=== PATIENT | female | born 1965 | race Caucasian/White ===

== ENCOUNTER 2018-03-23 17:52 | Inpatient (IN) | payer OTHER ==
[~2018-03-23] VITALS: Ht 157.5 cm; Wt 75.8 kg
--- NOTE | ~2018-03-23 | EKG ---
[address] [place] [address] ELECTROCARDIOGRAM REPORT Name: DEVMAXAGUSTO Erlinda Room #: 431-P ADM IN M.R.#: [id number] Admission: 03/23/18 Attend Phys: Erlinda Lion Discharge: Date of : 69 Report #: [id number] THIS REPORT FOR: //name// [facility] ED Test Date: 2018-03-23 Test Time: 19:07:50 Pat Name: AGUSTO LEZAMA Department: Room: Gender: F [employer]: CHERELLE : 1965 Requested By: Marifer Madrigal Order Number: [id number] MD: Bennie Rojas Measurements Intervals [place] Rate: 84 P: 33 ID: [id number] QRS: -14 QRSD: 91 T: 237 QT: 407 QTc: 482 Interpretive Statements Sinus rhythm Probable left atrial enlargement Abnormal R-wave progression, early transition Nonspecific T abnormalities, diffuse leads Compared to ECG 11/13/2012 07:50:38 T-wave abnormality now present Electronically Signed On 03-24-2018 8:10:42 CDT by Bennie Rojas [email or web address] <ELECTRONICALLY SIGNED> By: Bennie Rojas MD, FACC 03/24/18 0810 1907 1907 Bennie Rojas MD, [facility] /EPI
--- NOTE | ~2018-03-23 | D ---
[facility] [place] [address] DISCHARGE SUMMARY Name: AGUSTO LEZAMA Room #: 431-P [facility] IN M.R.#: [id number] Admission: 03/23/18 Attend Phys: Erlinda Lion Discharge: 03/24/18 Date of : 69 Report #: [id number] THIS REPORT FOR: //name// CC: Anuj Smith DATE OF SERVICE: 03/24/2018 FINAL DIAGNOSES: 1. Hypokalemia. 2. Hypotension. HOSPITAL COURSE: The patient was admitted with general weakness and a near syncopal episode. She had severe hypokalemia with potassium at 2.2 and mild hypotension with systolic in the 90s-100s. She was treated with IV fluid bolus and potassium supplementation. Her strength and mobility improved and blood pressure stabilized above 100 systolic. She had no other interval complication. Her diuretics and antihypertensives were discontinued. DISPOSITION: To be discharged to home with diet and activity as tolerated, resume all home medications except stop hydrocodone, Ziac, and Maxzide. Follow up with Dr. Smith in 1 week. By: [id number] Kang Lewis MD /nt
--- NOTE | ~2018-03-23 | H ---
[facility] [place] [address] HISTORY AND PHYSICAL Name: AGUSTO LEZAMA Room #: 431-P [facility] IN M.R.#: [id number] Admission: 03/23/18 Attend Phys: Erlinda Lion Discharge: Date of : 69 Report #: [id number] THIS REPORT FOR: //name// CC: Anuj Smith DATE OF SERVICE: 03/23/2018 CHIEF COMPLAINT: Dizziness and falls. HISTORY OF PRESENT ILLNESS: The patient is a 52-year-old female with multiple medical problems who presented to the Emergency Room after 2 episodes of dizziness and falls. She was outside with her dogs around 3:00 in the afternoon yesterday when she felt lightheaded and dizzy type feeling, had a near syncopal episode. She was able to grab on to some outside furniture and sit down and recover. She then got up to go inside, but felt like her legs were weak and they were to go out from underneath her. She was able to get in the house, but had another episode while coming out of the bathroom with dizziness and a presyncope, lightheaded type feeling. She was then able, with her 's help, to lay down in bed and then eventually dizziness resolved. She then was brought to the Emergency Room. Pertinent findings include a severe hypokalemia and mild hypotension. PAST MEDICAL HISTORY: Meniere disease, bursitis of the hips, diabetes type 2, hypertension, fibromyalgia, migraines, chronic back pain, arthritis. PAST SURGICAL HISTORY: She has had some surgical repair of the knees and rotator cuff repair of the right shoulder. FAMILY HISTORY: Unknown. SOCIAL HISTORY: She has occasional alcohol and remote tobacco use. ALLERGIES: ERYTHROMYCIN AND PENICILLIN. MEDICATIONS: Hydrocodone, Zoloft, Cymbalta, methotrexate weekly, glimepiride, metformin, folic acid, Plaquenil, Maxzide, prednisone, Ambien, Ziac, gabapentin, amitriptyline, Imitrex as needed, Topamax. REVIEW OF SYSTEMS: She denies headache, chest pain, shortness of breath, abdominal pain, nausea, vomiting, diarrhea, constipation, dysuria, syncope. OBJECTIVE: VITAL SIGNS: Temperature 36.7, pulse , respirations 18, blood pressure 90/46, O2 sat 94% on room air. GENERAL: She is awake and alert, in no distress. HEAD AND NECK: Unremarkable. [address] [address] HISTORY AND PHYSICAL Name: AGUSTO LEZAMA Room #: 431-P [facility] IN [facility].#: [id number] Admission: 03/23/18 Attend Phys: Erlinda Lion Discharge: Date of : 69 Report #: [id number] LUNGS: Clear. HEART: Regular. ABDOMEN: Soft, normoactive bowel sounds. EXTREMITIES: No edema. NEUROLOGIC: Motor strength 5/5 throughout. LABORATORY DATA: Reviewed. On presentation, sodium was 130, potassium 2.2, creatinine 1.3. Troponin negative. Magnesium normal. Hemoglobin 11. ASSESSMENT: 1. Syncope. 2. Hypotension. 3. Hypokalemia. 4. Diabetes type 2. PLAN: It seems that her symptoms are likely related to mild hypotension and hypokalemia, potentially from diuretic containing medications. At this point, those will be discontinued. She is receiving IV fluid along with potassium supplementation. I have asked her to get up and walk the halls today and we will order additional oral doses of potassium with lab work later today. If that stabilizes and she is able to function, I could anticipate early discharge this afternoon. <ELECTRONICALLY SIGNED> By: Kang Lewis MD 03/24/18 1628 [id number] [id number] Kang Lewis MD /nt
[~2018-03-23 17:52] MED LIST: AMBEREN PO; AMBIEN 5 MG TABL5 M1 PO; AMITRIPTYLINE H10 M1 PO; ASA81BEC PO; CALCIUM 500 +1 EAC6; CIPROFLOXACIN500 M1 PO; GABAPENTIN PO; HYDROCODON-ACE1 EACH PO; IBUPROFEN 600600 M1 PO; IMITREX 25 MG T25 MG PO; LOPRESSOR 50 MG50 M1 PO; LORTAB; MAXALT MLT10 MG PO; NEURONTIN 300300 M1 PO; NORCO 5-325 TA1 EACH PO; NORVASC10 MG PO; PREDNISONE 20 M20 MG PO; PYRIDIUM200 MG PO; TOPAMAX25 M1 PO; TOPROL XL50 MG PO; ULTRAM 50MG TAB50 MG; VALIUM2 MG PO; VITAMIN E400 UNIT PO; ZIAC 5-6.25 MG1 EACH
[2018-03-23 17:54] VITALS: BP 123/79
[2018-03-23] MEDS ORDERED: MAXZIDE-25 MG1 EACH PO (18:26)
[2018-03-23] MEDS ORDERED: FOLIC ACID1 MG PO (18:27)
[2018-03-23] MEDS ORDERED: HYDROXYCHLOROQ200 M1 PO (18:27)
[2018-03-23] MEDS ORDERED: METFORMIN HCL500 MG PO (18:28)
[2018-03-23] MEDS ORDERED: AMARYL2 MG PO (18:28)
[2018-03-23] MEDS ORDERED: METHOTREXATE 22.5 MG PO (18:29)
[2018-03-23] MEDS ORDERED: CYMBALTA30 MG PO (18:29)
[2018-03-23] MEDS ORDERED: SERTRALINE HCL100 MG PO (18:30)
[2018-03-23] MEDS ORDERED: NORCO 7.5-3251 EACH PO (18:31)
[2018-03-23 19:44] LABS: ABSOLUTE NEUTROPHILS 7.6 thou/uL (1.4-8.2); BASOPHILS 0.4 % (0.0-2.0); EOSINOPHILS 1.2 % (0.0-3.0); HEMATOCRIT 32.1 % (37.0-47.0); MCH 31.1 pg (26.0-34.0); MCHC 34.2 g/dL (28.0-37.0); MONOCYTES 3.4 % (1.0-8.0); PLATELET COUNT 543 thou/uL (150-400); RBC 3.53 mil/uL (4.20-5.00); RDW 15.3 % (10.5-14.5); WBC 11.1 thou/uL (4.0-11.0)
[2018-03-23 19:50] LABS: ANION GAP 8 mmol/L (7-16); BUN 16 mg/dL (7-18); CALCIUM 9.4 mg/dL (8.5-10.1); CHLORIDE 94 mmol/L (98-107); CO2 28 mmol/L (21-32); CREATININE 1.3 mg/dL (0.6-1.0); GLUCOSE 72 mg/dL (74-106); SODIUM 130 mmol/L (136-145)
[2018-03-23 19:53] LABS: POTASSIUM 2.2 mmol/L (3.5-5.1)
[2018-03-23 19:59] LABS: TROPONIN-I <0.06 ng/mL (<0.06)
[2018-03-23 21:12] VITALS: BP 115/65
[2018-03-23 21:20] VITALS: BP 115/65
[2018-03-24 03:45] VITALS: BP 94/58
[2018-03-24 05:16] LABS: HEMATOCRIT 29.6 % (37.0-47.0); HEMOGLOBIN 10.3 gm/dL (12.0-15.0); MCH 31.5 pg (26.0-34.0); MCHC 34.6 g/dL (28.0-37.0); RBC 3.25 mil/uL (4.20-5.00); RDW 15.1 % (10.5-14.5); WBC 9.2 thou/uL (4.0-11.0)
[2018-03-24 05:29] LABS: CALCIUM 8.2 mg/dL (8.5-10.1); CREATININE 1.4 mg/dL (0.6-1.0)
[2018-03-24 05:44] LABS: POTASSIUM 2.9 mmol/L (3.5-5.1)
[2018-03-24 07:26] VITALS: BP 90/46
[2018-03-24 15:35] VITALS: BP 99/56
[2018-03-24 16:42] LABS: CALCIUM 8.5 mg/dL (8.5-10.1); CREATININE 1.2 mg/dL (0.6-1.0); POTASSIUM 3.7 mmol/L (3.5-5.1)
[2018-03-24 17:23] VITALS: BP 99/56
[2018-03-24 17:25] VITALS: BP 99/56
== END 2018-03-24 17:30 | disposition home or self-care (01) | DRG 312 ==
LOC: ER 17:52 → EROBS 20:00 → 4E 20:00
PROVIDERS: Emergency Medicine; Internal Medicine Geriatric Medicine
DX: I95.1 Orthostatic hypotension (principal); E87.6 Hypokalemia; I10 Essential (primary) hypertension; G89.29 Other chronic pain; M54.9 Dorsalgia, unspecified; F32.4 Major depressive disorder, single episode, in partial remission; M79.7 Fibromyalgia; E11.9 Type 2 diabetes mellitus without complications; W18.30XA Fall on same level, unspecified, initial encounter; G43.909 Migraine, unspecified, not intractable, without status migrainosus; Z79.1 Long term (current) use of non-steroidal anti-inflammatories (NSAID); Z88.1 Allergy status to other antibiotic agents; Z88.0 Allergy status to penicillin; Z90.49 Acquired absence of other specified parts of digestive tract; Z90.710 Acquired absence of both cervix and uterus; Z87.891 Personal history of nicotine dependence; Y93.89 Activity, other specified; Y92.091 Bathroom in other non-institutional residence as the place of occurrence of the external cause; Y99.8 Other external cause status; Z79.84 Long term (current) use of oral hypoglycemic drugs; Z79.899 Other long term (current) drug therapy
CPT/HCPCS: 10183

== ENCOUNTER → 2020-09-27 | Outpatient (CLI) | payer OTHER ==
[~2020-09-27] MED LIST changes: +AMARYL2 MG PO; +CYMBALTA30 MG PO; +FOLIC ACID1 MG PO; +HYDROXYCHLOROQ200 M1 PO; +MAXZIDE-25 MG1 EACH PO; +METFORMIN HCL500 MG PO; +METHOTREXATE 22.5 MG PO; +NORCO 7.5-3251 EACH PO; +SERTRALINE HCL100 MG PO
== END ==
LOC: LAB 09:43
PROVIDERS: ATTEND Internal Medicine
DX: R05 Cough (principal); R50.9 Fever, unspecified; Z20.822 Contact with and (suspected) exposure to COVID-19